=== PATIENT | male | born 1955 | race Caucasian/White ===

== ENCOUNTER → 2023-03-26 08:29 | Outpatient (REF) | payer OTHER, SELFPAY ==
[2023-03-26 10:21] LABS: ALT (SGPT) 31 U/L (0-50); AST (SGOT) 30 U/L (17-59); Albumin 4.2 g/dl (3.5-5.0); Alkaline Phosphatase 64 U/L (38-126); Blood Urea Nitrogen 23 mg/dl (9-20); Calcium 9.7 mg/dl (8.4-10.2); Carbon Dioxide 28 mmol/L (22-30); Chloride 103 mmol/L (98-107); Glucose 159 mg/dl (70-99); HDL Cholesterol 36 mg/dl; LDL Cholesterol, Calculated 71 mg/dl; Potassium 5.2 mmol/L (3.5-5.1); Sodium 136 mmol/L (135-145); Total Bilirubin 0.5 mg/dl (0.2-1.3); Total Cholesterol 130 mg/dl (50-199); Total Protein 6.8 g/dl (6.3-8.2); Triglyceride 116 mg/dl (10-149); Very Low Density Lipoprotein 23 mg/dl (0-30); eGFR > 60.00
[2023-03-26 10:54] LABS: PSA, Total - Screen 0.87 ng/ml (0.0-4.0)
[2023-03-26 12:11] LABS: Glycohemoglobin (HgbA1c) 10.8 % (4.0-5.6)
== END ==
LOC: REG 08:29
PROVIDERS: ATTENDING PHYSICIAN Family Medicine
DX: E11.9 Type 2 diabetes mellitus without complications (principal); Z79.4 Long term (current) use of insulin; E78.5 Hyperlipidemia, unspecified; Z12.5 Encounter for screening for malignant neoplasm of prostate
CPT/HCPCS: 36415; 80053; 80061; 83036; G0103

== ENCOUNTER → 2023-04-12 08:26 | Outpatient (REF) | payer OTHER, SELFPAY | LOC: RAD 08:26 | PROVIDERS: ATTENDING PHYSICIAN Family Medicine | DX: I99.9 Unspecified disorder of circulatory system (principal) | CPT/HCPCS: 93922; 93925 ==

== ENCOUNTER → 2023-10-08 14:34 | Outpatient (REF) | payer OTHER, SELFPAY | LOC: RAD 14:34 | PROVIDERS: ATTENDING PHYSICIAN Surgery Vascular Surgery | DX: I73.9 Peripheral vascular disease, unspecified (principal) | CPT/HCPCS: 93922; 93925 ==

== ENCOUNTER → 2023-12-04 09:15 | Outpatient (REF) | payer OTHER, MEDICARE, SELFPAY ==
[2023-12-04 11:56] LABS: Glucose 94 mg/dl (70-99)
[2023-12-04 12:15] LABS: Glycohemoglobin (HgbA1c) 9.5 % (4.0-5.6)
== END ==
LOC: REG 09:15
PROVIDERS: ATTENDING PHYSICIAN Family Medicine
DX: E78.2 Mixed hyperlipidemia (principal); E11.69 Type 2 diabetes mellitus with other specified complication
CPT/HCPCS: 36415; 82947; 83036

== ENCOUNTER 2024-02-24 18:16 | Observation (INO) | payer MEDICARE, OTHER, SELFPAY ==
[2024-02-24] VITALS (8 sets, daily range): BP systolic 131–169; BP diastolic 61–79; BMI 29.2
[2024-02-24 16:29] LABS: Glucose - Point of Care 218 mg/dl (70-99)
--- NOTE | 2024-02-24 16:30 | ED.CVA ---
History of Present Illness
General
Chief Complaint: CVA/TIA Symptoms
Source: patient, records, family and ambulance crew
Exam Limitations: none
Time Seen by Provider: 02/24/24 16:27
Nursing documentation reviewed up to this point in time: agreed with
Onset of Stroke Symptoms
Onset of symptoms known: Yes
Date of onset of symptoms: 02/24/24
Time of onset of symptoms: 15:30
History of Present Illness
History of Present Illness:
68-year-old male diabetic prior TIA, unclear if he had prior deficits an hour ago developed aphasia right arm and right leg weakness and numbness EMS was called, here he is weakness has improved still feels numb speech is still off per his no
falls no fevers
Past History
Past History
ED Past Medical History: HTN and NIDDM
ED Past Surgical History: None
Social History
Tobacco: Smoker
Alcohol: Binge drinker
Personal:
Living: with family
Employment: Not employed
Phy Exam
Physical Exam
Physical Exam:
Physical Exam
General: no apparent distress, not acutely ill
Neck: No jaundice
Heart: s1/s2 regular rate and rhythm, no murmur. equal radial pulses.
Lungs: no acute respiratory distress. clear bilaterally
Abdomen: Nontender
Neuro: alert and oriented. Drift on the right, weakness right arm greater than left, positive slurred speech
Skin: no rash
Psychiatric: well kept. interactive and cooperative
Extremities: no edema.
Course
Orders/Labs/Results
Orders:
Orders
02/24/24 16:27
CT HEAD STROKE ALERT W/o Cont Urgent
Comment:
Reason For Exam: aphaia rig tar
CT HEAD/NECK ANG STROKE ALERT Urgent
Comment:
Reason For Exam: aphaisia right arm
Bedside Glucose- Treatment ONCE
Cardiac Monitoring- Treatment ONCE
02/24/24 16:28
Electrocardiogram (*1) Stat
Reason for Study: Other
Other Reason for Exam: neuro symptoms
EKG- Treatment ONCE
02/24/24 16:56
Complete Blood Count/With Diff Urgent
Comprehensive Metabolic Panel Urgent
PTT Urgent
Prothrombin Time Urgent
Abnormal Lab Results
02/24/24
16:28
POC Glucose 218 H mg/dl
(70-99)
Vital Signs
Initial and Last Documented VS:
Initial Vital Signs
Temp Pulse Resp BP Pulse Ox
97.9 F 95 22 169/72 98
02/24/24 16:59 02/24/24 16:59 02/24/24 16:59 02/24/24 16:59 02/24/24 16:59
Last Documented Vital Signs
Temp Pulse Resp BP Pulse Ox
97.9 F 95 22 169/72 98
02/24/24 16:59 02/24/24 16:59 02/24/24 16:59 02/24/24 16:59 02/24/24 16:59
MDM/Problems Addressed
Differential Diagnosis Includes:
CVA TIA mass seizure with Pradeep's paralysis intracerebral hemorrhage, hypoglycemia
MDM/Problems Addressed:
Right-sided weakness with aphasia
Chronic conditions affecting care: DM and Neurological disorder
Acute Exacerbation and/or Progression of Chronic Illness: DM and Neurological disorder
*Radiology
Radiology exam reviewed: radiology read reviewed
*Pulse Oximetry
Patient hypoxic: no
*EKG
Interpreted by ED Provider?: Yes
Interpretation: normal
Comparison EKG: no comparison EKG present
Heart Rate: 78
Rate: normal
Rhythm: sinus
Ischemia: no ischemia
*Last Remodeler Repairer Interpretation
Rate: normal
Interpretation: normal
Heart Rate: 78
Rhythm: sinus
*Critical Care Note
Total Time (30-74mins, 75-104mins- exclusive of procedures): 31
Update Note
Update Note:
Update, stroke alert called, looks like the patient has new neurodeficits to be in a similar distribution to a prior stroke other concern would be recrudescence, seizure, will check CT to head CT angiogram, await input from neurology
Reviewed at bedside with neurology symptoms actually started at 1 PM, symptoms are mild and improved no TNK at this time CT reviewed with radiology CT angiogram is pending
ED Attending Note
-
Portions of this chart may have been created with voice recognition software.� Occasional wrong word or��sound alike� substitutions may have occurred due to the inherent limitations of voice recognition software.
Discharge Plan
Departure
Patient Disposition: Admit
Date of Disposition: 02/24/24
Time of Disposition: 17:06
Admit to: Telemetry
Presentation/result/management discussed w/ accepting MD/DO: Hospitalist
Patient with high blood pressure during this ER visit?: Yes
Condition: Fair
Discharge Problem:
Acute CVA (cerebrovascular accident)
Prescriptions:
No Action
metformin 1,000 MG tablet
1,000 mg PO BID
sennosides [senna] 1 TABLET tablet
2 tab PO BID Qty: 0 0RF
acetaminophen 325 MG tablet
650 mg PO Q4HPRN PRN (Reason: fever mild pain) Qty: 0 0RF
sertraline 100 MG tablet
100 mg PO DAILY Qty: 0 0RF
temazepam 15 MG capsule
15 mg PO HSPRN PRN (Reason: insomnia) Qty: 0 0RF
aspirin 325 MG tablet,delayed release (DR/EC)
325 mg PO DAILY Qty: 0 0RF
bisacodyl [OneLAX Bisacodyl] 10 MG suppository
10 mg WA DAILYPRN PRN (Reason: constipation) Qty: 0 0RF
bisacodyl 5 MG tablet,delayed release (DR/EC)
10 mg PO DAILYPRN PRN (Reason: constipation) Qty: 0 0RF
rosuvastatin 10 MG tablet
10 mg PO QPM Qty: 0 0RF
insulin glargine [Lantus Solostar U-100 Insulin] 300 UNITS/3 ML insulin pen
18 units SC HS Qty: 0 0RF
ergocalciferol (vitamin D2) 50,000 UNIT capsule
50,000 unit PO WEEKLY Qty: 12 3RF
hydromorphone 2 MG tablet
2 mg PO Q4HPRN PRN (Reason: moderate-severe pain) Qty: 60 0RF
Discharge Date and Time
Print Language: GERMAN
--- NOTE | 2024-02-24 17:06 | HPS.HSE ---
Family Physician
-
Family Physician:
Chief Complaint
-
confusion
right sided weakness
History of Present Illness
68-year-old male diabetic prior TIA, HTn, HLD presented to us with confusion, right arm, foot numbness and weakness since this afternoon. patient was slow and was having trouble expressing. denied BALL, dizzy or syncope . denied fever, chills,
congestion, cough. denied abdominal pain,n,v,d. denied dysuria or hematuria.
CT head, CTA negative. admitting for further management.
Medical History
Past Medical History
Past Medical History: Reports Other
Additional Past Medical History:
type 2 DM
HLD
HTN
pinch nerve
Past Surgical History: Reports Other
Additional Past Surgical History:
right hip replacement
appendectomy
back surgery
Social History
Tobacco: Former Smoker
Alcohol: Former
Drug: None
Personal:
Living: With Family
Family History
Family History: Not pertinent
Allergies / Home Medications
Allergies reflects when Allergies were last updated in [email or web address].
Home Medications with original date entered in [email or web address]
Allergy/Medication List:
Allergies
Allergy/AdvReac Type Severity Reaction Status Date / Time
No Known Allergies Allergy Verified 02/24/24 17:11
Home Medications
metformin 1,000 mg tablet 1,000 mg PO BID 10/07/10
aspirin 81 mg tablet,delayed release 81 mg PO DAILY 02/24/24
insulin glargine 100 unit/mL (3 mL) subcutaneous pen (Lantus Solostar U-100 Insulin) 24 unit SC HS 02/24/24
lisinopril 10 mg tablet 10 mg PO DAILY 02/24/24
metoprolol succinate 25 mg tablet,extended release 24 hr 25 mg PO DAILY 02/24/24
rosuvastatin 10 mg tablet 10 mg PO HS 02/24/24
Review of Systems
-
Constitutional: Reports No Symptoms
EENT: Reports No Symptoms
Respiratory: Reports No Symptoms
Cardiac: Reports No Symptoms
Abdomen/GI: Reports No Symptoms
: Reports No Symptoms
Musculoskeletal: Reports No Symptoms
Skin: Reports No Symptoms
Neurological: Reports Weakness (right sided weakness, numbness, confusion)
Endocrine: Reports No Symptoms
Hematologic/Lymphatic: Reports No Symptoms
Psych: Reports No Symptoms
Physical Exam
Vital Signs
Vital Signs
Temp Pulse Resp BP Pulse Ox
97.9 F 95 22 169/72 98
02/24/24 16:59 02/24/24 16:59 02/24/24 16:59 02/24/24 16:59 02/24/24 16:59
Physical Exam
General: Well Developed, Well Nourished and No Apparent Distress
HEENT: NormoCephalic, Moist mucous membranes and Atraumatic
Respiratory: Clear
Cardiac: S1/S2 and Regular Rhythm; No Murmur or Rub
GI: Soft, Non Tender, Non Distended and Normal Bowel Sounds; No Organomegaly
Rectal: Deferred by Provider
Musculoskeletal: No Clubbing, No Cyanosis and No Edema
Skin: No Rash
Neuro: AO x 3 and Nonfocal/grossly intact
Psych: Calm
Data Reviewed
-
CT Scan: Report Reviewed by me
Lab Data: Labs Reviewed by me
Impression/Plan
-
#acute CVA
-head CT normal
-head neck CTA The vertebrobasilar system is relatively small in caliber but otherwise normal.There is small volume partially calcific atherosclerotic plaque without evidence of branch occlusion or significant stenosis.
-obtain A1c, lipid profile
-statin
-asa and Plavix
-MRI of head
-PT/OT
-neurology consulted
#type 2 Dm
-sliding scale
-CHO diet
-hold metformin
-Lantus 15u at hs
#essential hHTN
-lisinopril and metoprolol continued with hold parameter
#hyponatremia/Hyperkalemia likely dehydration
-corrected na 134, k 5.2
-monitor BMP in am
-normal saline 135prp3
#HLD
-statin
#CODe status
-full code
[2024-02-24 17:09] LABS: % Basophils 0.4 % (0-2); % Eosinophils 1.4 % (0-6); % Immature Granulocytes 0.1 % (0-0.5); % Lymphocytes 26.3 % (20.5-51.1); % Monocytes 5.5 % (1.7-9.3); % Neutrophils 66.3 % (42.2-75.2); Absolute Eosinophils 0.1 10^3/uL (0-0.7); Absolute Lymphocytes 2.1 10^3/uL (1.2-3.4); Absolute Monocytes 0.4 10^3/uL (0.1-0.6); Absolute Neutrophils 5.2 10^3/uL (1.4-6.5); Hematocrit 31.8 % (39.0-52.0); Hemoglobin 10.9 g/dL (13.0-18.0); Mean Corp Hgb Conc. 34.3 g/dL (33.0-37.0); Mean Corpuscular Hgb 30.4 pg (27.0-31.0); Mean Corpuscular Volume 88.6 fL (80.0-94.0); Mean Platelet Volume 11.2 fL (7.4-10.4); Nucleated Red Blood Cells % 0 % (-); Platelet Count 182 10^3/uL (130-400); Red Blood Cell Count 3.59 10^6/uL (4.70-6.10); Red Cell Dist. Width 12.9 % (11.5-14.5); White Blood Cell Count 7.8 10^3/uL (4.8-10.8)
[2024-02-24 17:13] LABS: INR 0.97; PT 13.2 Sec (11.4-14.6)
[2024-02-24 17:14] LABS: APTT 24.4 Sec (23.4-35.0)
[2024-02-24 17:21] LABS: ALT (SGPT) 28 U/L (0-50); AST (SGOT) 26 U/L (17-59); Albumin 3.9 g/dl (3.5-5.0); Alkaline Phosphatase 54 U/L (38-126); Blood Urea Nitrogen 32 mg/dl (9-20); Calcium 9.3 mg/dl (8.4-10.2); Carbon Dioxide 23 mmol/L (22-30); Chloride 99 mmol/L (98-107); Estimated Creatinine Clearance 71 ml/min; Glucose 216 mg/dl (70-99); Potassium 5.2 mmol/L (3.5-5.1); Sodium 131 mmol/L (135-145); Total Bilirubin 0.2 mg/dl (0.2-1.3); Total Protein 6.2 g/dl (6.3-8.2); eGFR > 60.00
--- NOTE | 2024-02-24 17:26 | W.PN.UPDATE ---
Update Note
Progress Note Update
This note serves as an addendum to the H&P by color mixer ANDREIA
Sabra GLORIA
HPI
68M Former Smoker , Former Binge ETOH use disorder , prior HX TIA , HX IrT2DM, HTN seen at ER;
- bib EMS
- abrupt onset of aphasi speech , right arm and right leg weakness and numbness
- weakness has improved but still feels numb speech
- no falls no fevers
PHX; as above
Reviewed VS: BP 170/72
PE
Gen: o apparent distress,
HEENT: symmetric face and expression, no toungue deviation , nl speech
Neck: supple
Lungs: CTA
Cor: RRR S1 S2
Abdomen: soft benign
SPD TECH: AAO3 Motor drift on the right, weakness of arm right arm> left , positive slurred speech
MS: no edema
Psych: calm
Data
Abnormal Lab Results
02/24/24 02/24/24
16:28 16:56
RBC 3.59 L
Hgb 10.9 L
Hct 31.8 L
MPV 11.2 H
Sodium 131 L
Potassium 5.2 H
BUN 32 H
Glucose 216 H
Total Protein 6.2 L
POC Glucose [address]
HCT : normal
H & N CTA ; pending final report
ASSESSMENT & PLAN
Abrupt onset of aphasia speech, weakness of right arm and right leg weakness and numbness
- NEG HCT
- Pending H & N CTA
- DAPL per neuro ( ASA and Plavix load)
- Escalade Rosuvastatin to [address] of 10mg QPM
- A1C, FLP
- ECHO
- Brain MRI in AM
- Neuro consult
IrT2M
- de escalade Lantus
- Hold metformin
- ISS low
HLD
- Escalade Rosuvastatin to [address] of 10mg Q PM
Benig HTN
- on Metoprol XL and Lisinopril
Corrected Na 134 for BG 218
Hyperkalemia
suspect clinical dehydration
- IV NS 500 cc
- Trend BMP in AM
DVT Px: SCD
Full code
Obs TLM
--- NOTE | 2024-02-24 17:45 | CON.NEURO ---
Consultation
Order
Date of Consultation: 02/24/24
Requesting Provider: Sabra Ames CRNP
Reason for Consult: Stroke alert
called in at 16:28
Neurology Consultation Note.
HPI: This is a 68-year-old right-handed man who presented to [facility] on 02/24/[facility]24 with right-sided weakness and dizziness.
According to the patient he had difficulties remembering verbal information during the video telephone conversation with his friend around 1 PM today. He also felt dizzy and 'my head was crazy '.
According to Ms. Ruelas the patient called her with request to get water and told that he could not get up from the couch. He was also noted that he could not use his glucometer due to right hand weakness. The patient himself does not provide
complaints of right-sided weakness. He admits to have dizziness and chronic bilateral tinnitus. No reports of change in vision or sensation. The patient does have history of stroke with transient right hemiparesis that reportedly recovered
following physical therapy. He also has baseline right leg numbness from 'pinched nerve'. The patient states that his thinking problem has been improving as well as right leg deficits.
He takes baby aspirin and metformin daily.
ER VS: 169/72, 95, afebrile.
EKG:NSR, QTc Int : 462 ms
PDMP:
Labs: Fingerstick�218, sodium�131, creatinine�1.0, normal WBCs, hemoglobin�10.9, platelets�182.
CT head wo contrast
CTA head/neck- no LVO
PMH: Left pontine stroke (s/p TPA in 2011), PAD, HTN, DLP, DM, anemia, LS radiculopathy, h/o ETOH addiction in remission
PSH: L4-5 and L5-S1 laminectomy, right femoral ORIF, bilateral cataract surgery (06/2023), laparoscopic appendectomy.
SH: originally from [place]; , retired auto customize painter, former smoker, stopped drinking alcohol 10 years ago.
FH: Both parents are due to 'age '
All:NKDA
ROS:Constitutional: Negative. Negative for chills, fever and unexpected weight change.
HENT: Positive for bilateral tinnitus, dizziness
Eyes: Negative. Negative for photophobia, pain and visual disturbance.
Respiratory: Negative for cough, choking and shortness of breath.
Cardiovascular: Negative for chest pain, palpitations and leg swelling.
Gastrointestinal: Negative for abdominal pain and vomiting.
Endocrine: Negative. Negative for cold intolerance.
Musculoskeletal: Positive for chronic back pain.
Skin: Negative for rash.
Allergic/Immunologic: Negative. Negative for immunocompromised state.
Neurological: Positive for right-sided weakness, chronic right leg numbness
Psychiatric/Behavioral: Negative for behavioral problems, confusion and hallucinations.
General: Well developed. In no acute distress.
Cardio: Regular rate and rhythm without murmur. Extremities are without cyanosis or edema.
Neuro:
Mental Status: Alert, oriented to person, place, and date. Fluent did not jordanian. Follows complex requests across the midline. Comprehension, naming, and repetition intact. No hemineglect.
Cranial Nerves: Pupils are equally round, surgical. EOMs full. Visual mccallum full to confrontation. No ptosis. No nystagmus. Face symmetric. Minimal impaired hearing AU. The palate elevated well. SCMs and traps 5/5. Tongue midline. No
dysarthria.
Motor: Right PD. Distal R hand weakness. Reduced fine finger movements on the right
Reflexes: ' in the RUE, 2+ in left upper extremity 0 knees. 0/2 in AJs. Plantar responses flexor bilaterally. Negative Katherin's bilaterally
Sensory: Normal vibration at the ankles. No tenderness to DSS
Coordination: No dysmetria or tremor.
Gait: deferred
NIH 1
Assessment and Plan:
I. Acute left pure motor lacunar syndrome. Not a candidate for IV TNK due to low NIH stroke score and clinical improvement.
II. History of left pontine stroke (2011)
III. HTN
-Continue Telemetry monitoring.
-Fall precautions
-Restart antihypertensive medications during if BP>140/90 mmHg who are neurologically stable in 24 to 48 hours after stroke onset;
-TTE with bubble studies
-Continue ASA 81 mg QD, Plavix load.
-Please check HbA1C, LDL.
-Brain MRI without leoinla
-Meclizine 25 mg every 8 hours as needed
-PT.
-DVT prophylaxis.
I personally reviewed all radiology and labs along with past medical records pertinent to current medical problems. Total time spent in patient care is 60 minutes.
Thank you for allowing us to participate in the care of this patient. We will continue to follow. Please do not hesitate to contact us with any questions or concerns.
Subjective/Objective
Subjective Data
Date of Service: February 24, 2024
Objective Data
Vital Signs
Temp Pulse Resp BP Pulse Ox
36.6 C 95 22 169/72 98
02/24/24 16:59 02/24/24 16:59 02/24/24 16:59 02/24/24 16:59 02/24/24 16:59
Lab Results
02/24/24 16:56
02/24/24 16:56
Sodium 131 mmol/L (135-145) L 02/24/24 16:56
Potassium 5.2 mmol/L (3.5-5.1) H 02/24/24 16:56
BUN 32 mg/dl (9-20) H 02/24/24 16:56
Glucose 216 mg/dl (70-99) H 02/24/24 16:56
Calcium 9.3 mg/dl (8.4-10.2) 02/24/24 16:56
Patient Allergies
No Known Allergies Allergy (Verified 02/24/24 17:11)
Medications
-
Active Medications
Generic Name Dose Route Start Last Admin
Trade Name Doretha PRN Reason Stop Dose Admin
Sodium Chloride 500 mls @ 80 mls/hr 02/24/24 18:00
Nss IV 02/25/24 00:14
.Q6H15M ALVAREZ
Home Medications
�Medication �Instructions �Recorded
metformin 1,000 mg tablet 1,000 mg PO BID 10/07/10
aspirin 81 mg tablet,delayed 81 mg PO DAILY 02/24/24
release
insulin glargine 100 unit/mL (3 24 unit SC HS 02/24/24
mL) subcutaneous pen (Lantus
Solostar U-100 Insulin)
lisinopril 10 mg tablet 10 mg PO DAILY 02/24/24
metoprolol succinate 25 mg 25 mg PO DAILY 02/24/24
tablet,extended release 24 hr
rosuvastatin 10 mg tablet 10 mg PO HS 02/24/24
Vital Signs and Labs
-
Vital Signs and Labs:
Vital Signs
Temp Pulse Resp BP Pulse Ox
36.6 C 95 22 169/72 98
02/24/24 16:59 02/24/24 16:59 02/24/24 16:59 02/24/24 16:59 02/24/24 16:59
Lab Results
02/24/24 16:56
02/24/24 16:56
PT 13.2 Sec (11.4-14.6) 02/24/24 16:56
INR 0.97 02/24/24 16:56
APTT 24.4 Sec (23.4-35.0) 02/24/24 16:56
Sodium 131 mmol/L (135-145) L 02/24/24 16:56
Potassium 5.2 mmol/L (3.5-5.1) H 02/24/24 16:56
BUN 32 mg/dl (9-20) H 02/24/24 16:56
Glucose 216 mg/dl (70-99) H 02/24/24 16:56
Calcium 9.3 mg/dl (8.4-10.2) 02/24/24 16:56
Medications
-
Medications:
Generic Name Dose Route Start Last Admin
Trade Name Freq PRN Reason Stop Dose Admin
Sodium Chloride 500 mls @ 80 mls/hr 02/24/24 18:00
Nss IV 02/25/24 00:14
.Q6H15M ALVAREZ
Home Medications
-
Home Medications
metformin 1,000 mg tablet 1,000 mg PO BID 10/07/10
aspirin 81 mg tablet,delayed release 81 mg PO DAILY 02/24/24
insulin glargine 100 unit/mL (3 mL) subcutaneous pen (Lantus Solostar U-100 Insulin) 24 unit SC HS 02/24/24
lisinopril 10 mg tablet 10 mg PO DAILY 02/24/24
metoprolol succinate 25 mg tablet,extended release 24 hr 25 mg PO DAILY 02/24/24
rosuvastatin 10 mg tablet 10 mg PO HS 02/24/24
[2024-02-24] MEDS: PLAVIX 300 MG PO (17:54)
[2024-02-24] MEDS: NSS 500 IV (19:30)
[2024-02-24] MEDS: LIPITOR 40 MG PO (19:30)
[2024-02-24 20:15] LABS: HDL Cholesterol 27 mg/dl; LDL Cholesterol, Calculated 40 mg/dl; Total Cholesterol 104 mg/dl (50-199); Triglyceride 187 mg/dl (10-149); Very Low Density Lipoprotein 37 mg/dl (0-30)
[2024-02-24] MEDS: LANTUS 0.15 UNITS SC (22:19)
[2024-02-24 22:20] LABS: Glucose - Point of Care 178 mg/dl (70-99)
[2024-02-25] VITALS (13 sets, daily range): BP systolic 118–152; BP diastolic 47–74; PULSE 73–91; O2SAT 96
[2024-02-25] MEDS: TOPROL XL 25 MG PO (07:32)
[2024-02-25] MEDS: ASPIR LOW (ENTERIC COATED) 81 MG PO (07:33)
[2024-02-25] MEDS: PLAVIX 75 MG PO (07:33)
[2024-02-25] MEDS: ZESTRIL 10 MG PO (07:33)
[2024-02-25 07:54] LABS: Blood Urea Nitrogen 20 mg/dl (9-20); Calcium 9.3 mg/dl (8.4-10.2); Carbon Dioxide 27 mmol/L (22-30); Chloride 102 mmol/L (98-107); Estimated Creatinine Clearance 79 ml/min; Glucose 159 mg/dl (70-99); HDL Cholesterol 32 mg/dl; LDL Cholesterol, Calculated 61 mg/dl; Potassium 4.5 mmol/L (3.5-5.1); Sodium 137 mmol/L (135-145); Total Cholesterol 115 mg/dl (50-199); Triglyceride 110 mg/dl (10-149); Very Low Density Lipoprotein 22 mg/dl (0-30); eGFR > 60.00
--- NOTE | 2024-02-25 09:23 | W.PN.HOSP.TC ---
Today's Communication/Plan
-
Likely TIA
Discussed cessation of etOH, tobacco, and THC gummies
Discuss dispo with Neuro today
pending Echo
Advance diet, monitor today, possible DC this afternoon
Assessment / Plan
Assessment / Plan
#Likely TIA, Abrupt onset of aphasia speech, weakness of right arm and right leg weakness and numbness , resolved focal deficits today
- NEG HCT
- H & N CTA no acute findins
- DAPL per neuro ( ASA and Plavix load) - discuss plan with Neuro today for OP meds and follow up
- Escalade Rosuvastatin to [address] of 10mg QPM
- A1C, FLP
- ECHO pending
- Brain MRI no acute findings
- Neuro consult appreciated
IrT2M
- continue Lantus
- Hold metformin
- ISS low
HLD
- Escalate Rosuvastatin to [address] of 10mg Q PM
Benig HTN
- on Metoprol XL and Lisinopril
Corrected Na 134 for BG 218
Hyperkalemia
suspect clinical dehydration
- IV NS 500 cc
- K WNL
DVT Px: SCD
Full code
Obs TLM
Anticipated Discharge: Today
Subjective/Interval History
-
Date of Service: February 25, 2024
Improved without focal neuro deficits this am. He says he had a THC gummy (tried for first time to see if it would help his chronic low back pain) prior to dizziness spells. No right arm weakness today and speech is back to baseline. MRI negative.
Objective Data
-
Labs:
Laboratory Results
02/25/24
06:45
Sodium 137
Potassium 4.5
Chloride 102
Carbon Dioxide 27
BUN 20
Creatinine 0.9
Glucose 159 H
Calcium 9.3
Vital Signs:
Vital Signs
Temp Pulse Resp BP Pulse Ox
97.8 F 62 18 128/61 94
02/24/24 22:24 02/25/24 07:33 02/25/24 07:00 02/25/24 07:33 02/25/24 07:00
I&O
02/24/24 02/25/24 02/26/24
06:59 06:59 06:59
Output Total 825 / 825
Balance -825 / -825
Review of Systems
-
History Source: Patient
All other systems: Reviewed and negative
Physical Exam
-
General: Well Developed, Well Nourished, No Apparent Distress, Comfortable and Conversant
HEENT: Normocephalic, Atraumatic, Moist Mucous Membranes and Other (flattening of left nasolabial fold, unclear chronicity)
Respiratory: Clear to Auscultation
Cardiac: Regular Rhythm and S1/S2
GI: Soft, Nontender and Nondistended
Musculoskeletal: No Clubbing, No Cyanosis and No Edema
Skin: Warm and Dry
Neuro: AO x 3 and No Motor Deficits
Psych: Calm and Intact Judgement/Insight
Data Reviewed
-
Medical Tests (Nuc Med, Echo etc): Image personally visualized and interpreted, Report Reviewed by me and Discussed with Patient
[2024-02-25 09:37] LABS: Glucose - Point of Care 152 mg/dl (70-99)
[2024-02-25] MEDS: NOVOLOG FLEXPEN-LOW RESISTANCE 1 UNITS SC (09:50)
[2024-02-25 09:56] LABS: Glycohemoglobin (HgbA1c) 9.8 % (4.0-5.6)
--- NOTE | 2024-02-25 13:14 | CM ---
CM reviewed medical records. CM reviewed PT recommendations. Plan for outpatient PT.
PLAN: Home with outpatient PT.
[2024-02-25 13:31] LABS: Glucose - Point of Care 237 mg/dl (70-99)
[2024-02-25] MEDS: NOVOLOG FLEXPEN-LOW RESISTANCE 2 UNITS SC (13:49)
--- NOTE | 2024-02-25 14:44 | W.PN.NEURO.1 ---
Today's Communication / Plan
-
.
Subjective/Objective
Subjective Data
Date of Service: February 25, 2024
Neurology follow-up note
Mr. Ruelas states that his the right hand and leg weakness have lasted several hours and completely resolved. No reports of headaches, change in vision or sensation, radicular neck pain. The patient was able to feed himself in the morning with
no difficulties.
LDL�61, hemoglobin A1c�9.8.
Brain MRI showed no acute infarcts.
TTE-interatrial septum is intact with no evidence of shunting by color flow
Doppler. No intracardiac mass or thrombus formation seen.
CTA head/neck-no hemodynamically significant stenosis.
PMH: Left pontine stroke (s/p TPA in 2011), PAD, HTN, DLP, DM, anemia, LS radiculopathy, h/o ETOH addiction in remission
PSH: L4-5 and L5-S1 laminectomy, right femoral ORIF, bilateral cataract surgery (06/2023), laparoscopic appendectomy.
SH: originally from [place]; , retired painter assistant, former smoker, stopped drinking alcohol 10 years ago.
FH: Both parents are due to 'age '
All:NKDA
ROS:Constitutional: Negative. Negative for chills, fever and unexpected weight change.
HENT: Positive for bilateral tinnitus, dizziness
Eyes: Negative. Negative for photophobia, pain and visual disturbance.
Respiratory: Negative for cough, choking and shortness of breath.
Cardiovascular: Negative for chest pain, palpitations and leg swelling.
Gastrointestinal: Negative for abdominal pain and vomiting.
Endocrine: Negative. Negative for cold intolerance.
Musculoskeletal: Positive for chronic back pain.
Skin: Negative for rash.
Allergic/Immunologic: Negative. Negative for immunocompromised state.
Neurological: Positive for transient right hemiparesis, chronic leg numbness
Psychiatric/Behavioral: Negative for behavioral problems, confusion and hallucinations.
General: Well developed. In no acute distress.
Cardio: Regular rate and rhythm without murmur. Extremities are without cyanosis or edema.
Neuro:
Mental Status: Alert, oriented to person, place, and date. Fluent did not iranian. Follows complex requests across the midline. Comprehension, naming, and repetition intact. No hemineglect.
Cranial Nerves: Pupils are equally round, surgical. EOMs full. Visual mccallum full to confrontation. No ptosis. No nystagmus. Face symmetric. Minimal impaired hearing AU. The palate elevated well. SCMs and traps 5/5. Tongue midline. No
dysarthria.
Motor: No pronator drift normal fine finger movements.
Coordination: No dysmetria or tremor.
Gait: deferred
Assessment and Plan:
I. TIA
II. History of left pontine stroke (2011)
III. HTN
-Please optimize glycemic control.
-Continue aspirin 81 mg once a day indefinitely and Plavix 75 mg once a day for 21-day
-DVT prophylaxis.
-Outpatient routine EEG
-Outpatient neurology follow-up
I personally reviewed all radiology and labs along with past medical records pertinent to current medical problems. Total time spent in patient care is 35 minutes.
Thank you for allowing us to participate in the care of this patient. Please do not hesitate to contact us with any questions or concerns.
Objective Data
Vital Signs
Temp Pulse Resp BP Pulse Ox
36.8 C 70 16 126/58 98
02/25/24 08:00 02/25/24 12:45 02/25/24 12:45 02/25/24 12:00 02/25/24 12:45
Lab Results
02/24/24 16:56
02/25/24 06:45
PT 13.2 Sec (11.4-14.6) 02/24/24 16:56
INR 0.97 02/24/24 16:56
APTT 24.4 Sec (23.4-35.0) 02/24/24 16:56
Sodium 137 mmol/L (135-145) 02/25/24 06:45
Potassium 4.5 mmol/L (3.5-5.1) 02/25/24 06:45
BUN 20 mg/dl (9-20) 02/25/24 06:45
Glucose 159 mg/dl (70-99) H 02/25/24 06:45
Calcium 9.3 mg/dl (8.4-10.2) 02/25/24 06:45
LDL Cholesterol, Calc 61 mg/dl 02/25/24 06:45
Patient Allergies
No Known Allergies Allergy (Verified 02/24/24 17:11)
Vital Signs and Labs
-
Vital Signs and Labs:
Vital Signs
Temp Pulse Resp BP Pulse Ox
36.8 C 70 16 126/58 98
02/25/24 08:00 02/25/24 12:45 02/25/24 12:45 02/25/24 12:00 02/25/24 12:45
Lab Results
02/24/24 16:56
02/25/24 06:45
PT 13.2 Sec (11.4-14.6) 02/24/24 16:56
INR 0.97 02/24/24 16:56
APTT 24.4 Sec (23.4-35.0) 02/24/24 16:56
Sodium 137 mmol/L (135-145) 02/25/24 06:45
Potassium 4.5 mmol/L (3.5-5.1) 02/25/24 06:45
BUN 20 mg/dl (9-20) 02/25/24 06:45
Glucose 159 mg/dl (70-99) H 02/25/24 06:45
Calcium 9.3 mg/dl (8.4-10.2) 02/25/24 06:45
LDL Cholesterol, Calc 61 mg/dl 02/25/24 06:45
Medications
-
Medications:
Generic Name Dose Route Start Last Admin
Trade Name Freq PRN Reason Stop Dose Admin
Acetaminophen 650 mg 02/24/24 18:23
Acetaminophen 650 Mg Rectal Suppository RECTAL 03/23/24 18:22
Q4HPRN PRN
BALL, mild pain, or temp >100.4F
Acetaminophen 650 mg 02/24/24 18:23
Acetaminophen 325 Mg Tablet PO 03/23/24 18:22
Q4HPRN PRN
BALL, mild pain, or temp >100.4F
Aspirin 81 mg 02/25/24 08:00 02/25/24 07:33
Aspirin 81 Mg (Enteric Coated) Tablet PO 03/24/24 07:59 81 mg
DAILY ALVAREZ Administration
Atorvastatin Calcium 40 mg 02/24/24 19:00 02/24/24 19:30
Atorvastatin (Lipitor) 40 Mg Tablet PO 03/23/24 18:59 40 mg
QPM ALVAREZ Administration
Clopidogrel Bisulfate 75 mg 02/25/24 08:00 02/25/24 07:33
Clopidogrel 75 Mg Tablet PO 03/24/24 07:59 75 mg
DAILY ALVAREZ Administration
Dextrose 12.5 grams 02/24/24 18:23
Dextrose 50% (0.5 Grams/Ml) 50 Ml Syringe IV 03/23/24 18:22
[id number] PRN
hypoglycemia
Protocol
Glucagon 1 mg 02/24/24 18:23
Glucagon 1 Mg Vial IM 03/23/24 18:22
PRN PRN
hypoglycemia
Protocol
Insulin Glargine 15 units/ 0.15 mls @ 0 mls/hr 02/24/24 22:00 02/24/24 22:19
Device SC 03/23/24 21:59 0.15 mls
HS ALVAREZ Administration
As Directed
Insulin Aspart 0 units 02/25/24 07:30 02/25/24 13:49
Insulin Aspart Low Resistance 300 Units/3 Ml Pen.Injctr SC 03/24/24 07:29 2 units
AC ALVAREZ Administration
Protocol
Lisinopril 10 mg 02/25/24 08:00 02/25/24 07:33
Lisinopril 10 Mg Tablet PO 03/24/24 07:59 10 mg
DAILY ALVAREZ Administration
Metoprolol Succinate 25 mg 02/25/24 08:00 02/25/24 07:32
Metoprolol 25 Mg Extended Release Tablet PO 03/24/24 07:59 25 mg
DAILY ALVAREZ Administration
Sodium Chloride 0 flush 02/24/24 19:00
Sodium Chloride 0.9% (Flush) Syringe IV 03/23/24 18:59
PER PROTOCOL ALVAREZ
Sodium Chloride 0 flush 02/24/24 19:00
Sodium Chloride 0.9% (Flush) Syringe IV 03/23/24 18:59
PER PROTOCOL ALVAREZ
Home Medications
-
Home Medications
metformin 1,000 mg tablet 1,000 mg PO BID 10/07/10
aspirin 81 mg tablet,delayed release 81 mg PO DAILY 02/24/24
insulin glargine 100 unit/mL (3 mL) subcutaneous pen (Lantus Solostar U-100 Insulin) 24 unit SC HS 02/24/24
lisinopril 10 mg tablet 10 mg PO DAILY 02/24/24
metoprolol succinate 25 mg tablet,extended release 24 hr 25 mg PO DAILY 02/24/24
rosuvastatin 10 mg tablet 10 mg PO HS 02/24/24
--- NOTE | 2024-02-25 16:26 | W.DS.TRANS ---
DC Summary - [employer]
-
Discharge Instructions:
Discharge Diagnosis/Procedures Transient Ischemic Attack, High blood pressure,
High blood sugar
Diet Low Cholesterol,Low Fat,No added salt,Diabetic,
Carb Controlled
Activity No restrictions
Driving Restrictions As prior to admission
Bathing Restrictions None
Blood Work repeat HgA1C in 3 months
Others Tests EEG
Specialty Instructions Weigh Daily
Instructions: Transient ischemic attack
Transient Ischemic Attack (DC)
Type 1 diabetes - Discharge instructions
Type 2 diabetes - Discharge instructions
BLOOD PRESSURE
Stand-Alone Forms:
Changes to Home Medications: Yes
Discharge Medications:
DC Medications w/original date entered in [employer]
metformin 1,000 mg tablet 1,000 mg PO BID 10/07/10
aspirin 81 mg tablet,delayed release 81 mg PO DAILY 02/24/24
insulin glargine 100 unit/mL (3 mL) subcutaneous pen (Lantus Solostar U-100 Insulin) 24 unit SC HS 02/24/24
lisinopril 10 mg tablet 10 mg PO DAILY 02/24/24
metoprolol succinate 25 mg tablet,extended release 24 hr 25 mg PO DAILY 02/24/24
rosuvastatin 10 mg tablet 10 mg PO HS 02/24/24
NEW medication - clopidogrel 75 mg tablet 75 mg PO DAILY TIA #21 tabs 02/25/24 , take for 21 days then stop
Home Medication Changes
Add: NEW medication - clopidogrel 75 mg tablet 75 mg PO DAILY TIA #21 tabs 02/25/24 , take for 21 days then stop
Pending Results: No
Total time spent discharging patient (in min): 35
--- NOTE | 2024-02-25 16:27 | W.DCSUMMARY ---
Discharge Summary
Discharge Data
Date of Admission: 02/24/24
Date of Discharge: 02/25/24
Total time spent discharging patient (in min): 35
-
Pending Results: No
Hospital Course
The patient is a 68 yo gentleman with PMH significant for Left pontine stroke (s/p TPA in 2011), PAD, HTN, DLP, DM, anemia, LS radiculopathy, h/o ETOH addiction in remission (for 10 years), who presented to the ED due to right hand and leg weakness
lasting several hours, associated with dizziness and difficulty remembering events and felt like his 'head was crazy.' According to his , the patient called her with request to get water and told her that he could not get up from the couch. He
was also noted that he could not use his glucometer due to right hand weakness. He mentions that he tried for the first time taking a THC gummy prior to these events as well, as he heard they could help his chronic back pain.
The patient was admitted to the hospital telemetry monitoring for possible CVA. His focal neurologic deficits resolved overnight, and he denied issues with focal neuro deficits in the morning. He was able to swallow and tolerate an oral diet without
difficulty. He discussed stopping cigarette smoking. Brain MRI showed no acute infarcts. TTE showed interatrial septum intact with no evidence of shunting by color flow, No intracardiac mass or thrombus formation seen. CTA head/neck-no
hemodynamically significant stenosis. HgbA1C was elevated at 9.8. He is discharged to home, with recommendation for follow up with Neurology for EEG, follow up with his PCP to address close control of glycemic index, with diet, insulin, and follow
HgbA1C in 3 months. He is to continue home meds with addition of Plavix 75 mg daily for 21 days. He is discharged with stable hemodynamics, stable respiratory status, afebrile, tolerating orals, and ambulating well without difficulty, Dc'd in stable
condition to home.
Discharge Plan
-
Patient Disposition: Home (Routine Discharge)
Discharge Diagnosis/Procedures: Transient Ischemic Attack, High blood pressure, High blood sugar
Condition: Good
Diet: Low Fat, Low Cholesterol, Diabetic, Carb Controlled and No added salt
Activity: No restrictions
Driving Restrictions: As prior to admission
Bathing Restrictions: None
Blood Work: repeat HgA1C in 3 months
Others Tests: EEG
Specialty Instructions: Weigh Daily- Call MD for wt gain/loss 3 lbs overnight/5 lbs in 1 week
Activity Restrictions/Additional Instructions:
Call [facility] to make an appointment with a Neurologist [phone] to direct you to Neurology clinic for appointment.
Follow up with your Primary care doctor to address: high hemoglobin A1C over 9, continue to monitor blood sugars, continue insulin, and stopping smoking, and ask if they would like you to follow up with an [employer].
Instructions: Transient ischemic attack, Transient Ischemic Attack (DC), Type 1 diabetes - Discharge instructions, Type 2 diabetes - Discharge instructions, BLOOD PRESSURE
Referrals:
Brenton Barry DO [Family Provider] -
Additional Discharge Medication Instructions: Continue Aspirin 81 mg daily, New medication: Plavix 75 mg one tablet by mouth daily for 21 days
Prescriptions:
New
clopidogrel 75 mg Tablet
75 mg PO DAILY Qty: 21 0RF
Rx Instructions:
1 tablet by mouth daily for 21 days, then stop, no refills
Continued
metformin 1,000 MG tablet
1,000 mg PO BID
aspirin 81 mg Tablet,Delayed Release (Dr/Ec)
81 mg PO DAILY
lisinopril 10 mg Tablet
10 mg PO DAILY
metoprolol succinate 25 mg Tablet Extended Release 24 Hr
25 mg PO DAILY
insulin glargine [Lantus Solostar U-100 Insulin] 100 unit/mL (3 mL) insulin pen
24 unit SC HS
rosuvastatin 10 MG tablet
10 mg PO HS
Discharge Orders:
Discharge Patient (As Directed); Ordered 02/25/24
Ordered By: Talita C. Nicho
Discharge Date and Time
Print Language: SWEDISH
--- NOTE | 2024-02-25 16:44 | EDRN ---
Discharge instructions given to patient by Lisa RodrigezRN
== END 2024-02-25 17:25 | disposition home or self-care (01) ==
LOC: ED 18:16
PROVIDERS: Registered Nurse; ADMITTING PHYSICIAN Internal Medicine; ATTENDING PHYSICIAN Internal Medicine; CONSULT PHYSICIAN Psychiatry & Neurology Neurology; EMERGENCY PHYSICIAN Emergency Medicine; FAMILY PHYSICIAN Family Medicine
DX: G45.9 Transient cerebral ischemic attack, unspecified (principal); E87.1 Hypo-osmolality and hyponatremia; E87.5 Hyperkalemia; F10.11 Alcohol abuse, in remission; R47.01 Aphasia; R20.0 Anesthesia of skin; R53.1 Weakness; G89.29 Other chronic pain; G46.5 Pure motor lacunar syndrome; I70.90 Unspecified atherosclerosis; I44.4 Left anterior fascicular block; E78.5 Hyperlipidemia, unspecified; E11.41 Type 2 diabetes mellitus with diabetic mononeuropathy; I11.9 Hypertensive heart disease without heart failure; I69.351 Hemiplegia and hemiparesis following cerebral infarction affecting right dominant side; F17.200 Nicotine dependence, unspecified, uncomplicated; I63.9 Cerebral infarction, unspecified; Z79.82 Long term (current) use of aspirin; Z79.84 Long term (current) use of oral hypoglycemic drugs; Z79.4 Long term (current) use of insulin; Z96.641 Presence of right artificial hip joint
CPT/HCPCS: 70450; 70496; 70498; 70551; 80048; 80053; 80061; 82962; 83036; 85025; 85610; 85730; 93005; 93306; 97162; 99291; 99406; G0378; Q9967

== ENCOUNTER → 2024-09-30 07:38 | Outpatient (REF) | payer MEDICARE, OTHER, SELFPAY ==
[2024-09-30 08:17] LABS: Hematocrit 38.7 % (39.0-52.0); Hemoglobin 13.1 g/dL (13.0-18.0); Mean Corp Hgb Conc. 33.9 g/dL (33.0-37.0); Mean Corpuscular Volume 89.2 fL (80.0-94.0); Nucleated Red Blood Cells % 0 % (-); Platelet Count 244 10^3/uL (130-400); Red Cell Dist. Width 12.8 % (11.5-14.5)
[2024-09-30 09:01] LABS: ALT (SGPT) 29 U/L (0-50); AST (SGOT) 25 U/L (17-59); Albumin 4.5 g/dl (3.5-5.0); Alkaline Phosphatase 55 U/L (38-126); Blood Urea Nitrogen 25 mg/dl (9-20); Calcium 9.6 mg/dl (8.4-10.2); Carbon Dioxide 23 mmol/L (22-30); Chloride 107 mmol/L (98-107); Glucose 107 mg/dl (70-99); HDL Cholesterol 33 mg/dl; LDL Cholesterol, Calculated 77 mg/dl; Potassium 4.7 mmol/L (3.5-5.1); Sodium 139 mmol/L (135-145); Total Protein 7.0 g/dl (6.3-8.2); Very Low Density Lipoprotein 20 mg/dl (0-30); eGFR > 60.00
[2024-09-30 09:20] LABS: PSA, Total - Screen 0.94 ng/ml (0.0-4.0)
[2024-09-30 11:06] LABS: Glycohemoglobin (HgbA1c) 9.3 % (4.0-5.6)
== END ==
LOC: REG 07:38
PROVIDERS: ATTENDING PHYSICIAN Family Medicine
DX: E11.9 Type 2 diabetes mellitus without complications (principal); E78.2 Mixed hyperlipidemia; Z12.5 Encounter for screening for malignant neoplasm of prostate
CPT/HCPCS: 36415; 80053; 80061; 83036; 85025; G0103

== ENCOUNTER → 2024-10-21 14:43 | Outpatient (REF) | payer MEDICARE, OTHER, SELFPAY | LOC: RAD 14:43 | PROVIDERS: ATTENDING PHYSICIAN Registered Nurse; FAMILY PHYSICIAN Family Medicine | DX: I73.9 Peripheral vascular disease, unspecified (principal) | CPT/HCPCS: 93922; 93925 ==